=== PATIENT | male | born 1955 | race Caucasian/White ===

== ENCOUNTER 2017-12-15 08:53 | Emergency (ER) | payer BC ==
[2017-12-15 09:13] VITALS: BP 122/79
--- NOTE | 2017-12-15 09:24 | UC ---
Skin Complaint HPI - HPI Summary HPI Summary: 62 year old male with skin complaint . Left arm skin rash for 10 days. was gardening and exposed to poison [place]. no fever. [ End ] - History of Current Complaint Chief Complaint: UCRash Time Seen by Provider: 12/15/17 09:18 Stated Complaint: RIGHT ARM SKIN COMPLAINT 1 WEEK Onset/Duration: Gradual Onset Skin Exposure Onset/Duration: Days Ago Timing: Constant Onset Severity: Moderate Pain Intensity: 0 Alleviating Factor(s): Nothing Associated Signs & Symptoms: Positive: Negative, Tenderness Related History: Possible Reaction to: Environmental Exposure - Allergy/Home Medications Allergies/Adverse Reactions: Allergies Allergy/AdvReac Type Severity Reaction Status Date / Time No Known Allergies Allergy Verified 12/15/17 09:13 Home Medications: Home Medications Gabapentin CAP(*) [Neurontin 300 CAP(*)] 600 mg PO BID 12/15/17 [History Confirmed 12/15/17] Review of Systems Skin: Rash Is Patient Immunocompromised?: No All Other Systems Reviewed And Are Negative: Yes PMH/Surg Hx/FS Hx/Imm Hx Previously Healthy: Yes - Surgical History Surgical History: None - Family History Known Family History: Positive: None - Social History Occupation: Employed Full-time Alcohol Use: Daily Alcohol Amount: 1 Substance Use Type: None Smoking Status (MU): Former Smoker When Did the Patient Quit Smoking/Using Tobacco: 2002 Physical Exam Triage Information Reviewed: Yes Appearance: Well-Appearing Vital Signs: Initial Vital Signs Temp 98.9 F 12/15/17 09:06 Pulse 71 12/15/17 09:06 Resp 18 12/15/17 09:06 BP 122/79 12/15/17 09:06 Pulse Ox 99 12/15/17 09:06 Vital Signs Reviewed: Yes Eyes: Positive: Conjunctiva Clear Respiratory: Positive: Chest non-tender, Lungs clear, No respiratory distress Cardiovascular: Positive: RRR, No Murmur Musculoskeletal Exam: Normal Neurological Exam: Normal Psychological Exam: Normal Skin: Positive: rashes - vesicopapular rash on the right forearm with blistering present. 6x6 cm. no streaking. no discharge. Course/Dx - Course Course Of Treatment: discussed SE of medrol and prednisone and he wants to start dyue to his sx not much improved over 10 days f[place]CP [place] state - Differential Diagnoses - Skin Complaint Differential Diagnoses: Contact Dermatitis, Poison [place], Poison [place] - Diagnoses Provider Diagnoses: Contact Dermatitis / Poison [place] Discharge - Sign-Out/Discharge Documenting (check all that apply): Patient Departure - Discharge Plan Condition: Good Disposition: HOME Prescriptions: predniSONE [Prednisone 20 MG TAB] 20 mg PO BID 5 Days #10 tablet Triamcinolone 0.5% CREAM(NF) [Triamcinolone 0.5% CREAM*] 1 applic TOPICAL BID 10 Days #15 grams Patient Education Materials: Poison [place] (ED) Referrals: Non Staff,Doctor [Primary Care Provider] - If Needed - Billing Disposition and Condition Condition: GOOD Disposition: Home
== END 2017-12-15 09:41 | disposition home or self-care (01) ==
LOC: UCCORT 08:53
DX: R21 Rash and other nonspecific skin eruption (principal); Z87.891 Personal history of nicotine dependence
CPT/HCPCS: 99202; G0463